=== PATIENT | female | born 1960 | race Caucasian/White ===

== ENCOUNTER → 2018-08-05 16:32 | Outpatient (CLI) | payer BC, SELFPAY ==
[2018-08-05 17:48] LABS: Hematocrit 33.5 % (37-47); Hemoglobin 8.6 g/dl (12.0-15.0)
[2018-08-05 18:02] LABS: Ferritin 5 ng/mL (8-252); Iron 15 ug/dL (50-170)
[2018-08-07 16:07] LABS: Endomysial Antibody IgA Negative (Negative)
[2018-08-08 18:17] LABS: Immunoglobulin A 233 mg/dL (87-352); t-Transglutaminase IgA <2 U/mL (0-3)
== END ==
PROVIDERS: Family Provider Nurse Practitioner Family; PCP Nurse Practitioner Family; Referring Provider Internal Medicine Gastroenterology; Visit Provider Internal Medicine Gastroenterology
DX: D50.9 Iron deficiency anemia, unspecified (principal)
CPT/HCPCS: 36415; 82728; 82784; 83516; 83540; 85014; 85018; 86255

== ENCOUNTER → 2018-08-14 16:29 | Outpatient (CLI) | payer BC, SELFPAY ==
--- NOTE | 2018-08-14 10:05 | EGD_PTH ---
PATIENT: JAKUB LOGAN LOC: [facility] U#:[id number] AGE/SX: 65/F ROOM: RE08/14/[address]: Dr. Asael Overton MD : 1960 BED: DIS: SPEC #: [id number] RECD: 08/14/18 16:02 STATUS: JASMINE HERNANDEZ #: [id number] ELIA: 08/14/18 10:[address]: Asael Overton DEPT: SURGICAL PATHOLOGY RECD BY: Beto Franks ENTERED: 08/17/18 10:18 SP TYPE: EGD BIOPSY OTHR DR: Kristen Jiménez, PHLEBOTOMY [facility] Tissues: Duodenum, NOS Procedures: Surgery Specimen Level IV HEADER OPERATION: EGD with biopsies PRE-OP DIAGNOSIS: Iron deficiency, anemia TISSUE SUBMITTED: Duodenal biopsies, rule out celiac MICROSCOPIC DIAGNOSIS Duodenal biopsies: Mild chronic duodenitis with mildly increased intraepithelial lymphocytes and decreased villous to crypt ratio. CE:thomas 08/18/18 COMMENT Microscopic features of celiac disease are not identified. Clinical correlation is recommended. Case has been reviewed in consultation with Dr. Bazzi who concurs with the above diagnosis. IDC:AM MICROSCOPIC DESCRIPTION Slides are reviewed. GROSS DESCRIPTION Received in fixative is one container labeled with the patient's name and designated duodenal biopsy. The specimen consists of multiple irregular fragments of light bowers soft tissue that in aggregate measure 0.6 x 0.5 x 0.1 cm. The specimen is totally submitted in one cassette. / AM:thomas 08/17/18 TC:3 CPT: 99647
--- OUTSIDE RECORDS SUMMARY | 2018-10-19 07:51 | XMS RPT_ITS | Summary of Care ---
:1960 Author Organization [facility] Address [address] [place] [address] Care Team Providers Name Role Phone Jessy Kristenstan Granado CNP Primary Care Provider Reason for Visit Reason Comments Follow-up Patient is here for follow up of eustachian tube dysfunction Left tube placed on 10/03/2017. Timin months Associated symptoms:patient complains of hearing her pulse in right ear, left ear feels as though it's filling up. She has a cold. Location : left ear Severity: low Encounter Details Date Type Department Care Team Description 07/09/2018 Office Visit [facility] ENT Cody Mattson Dysfunction of both eustachian tubes (Primary Dx); Physicians Frank Rojas DO Bilateral tinnitus; [address] [place] [address] [place] [address] [phone] Allergies No Known Allergiesas of this encounter Medications Prescription Sig. Disp. Refills Start Date End Date Status losartan (COZAAR) 25 MG Take 25 mg by mouth Active tablet daily. metFORMIN (GLUCOPHAGE) Take 500 mg by Active 500 MG tablet mouth 2 (two) times a day with meals (morning and evening meals) . sertraline (ZOLOFT) 50 MG Take 50 mg by mouth Active tablet daily. glimepiride (AMARYL) 2 MG 07/01/2018 Active tablet as of this encounter Active Problems Problem Noted Date Tobacco Abuse 07/09/2018 Dysfunction of both eustachian tubes 10/23/2017 Bilateral tinnitus 09/09/2017 Bilateral hearing loss 09/09/2017 Social History Tobacco Use Types Packs/Day Years Used Date Heavy Tobacco Smoker Cigarettes 0.5 20 Smokeless Tobacco: Never Used Comments: 2nd hand exposure Alcohol Use Drinks/Week oz/Week Comments No Sex Assigned at Date Recorded Not on file as of this encounter Last Filed Vital Signs Vital Sign Reading Time Taken Blood Pressure 150/75 07/09/2018 8:06 AM EST Pulse 85 07/09/2018 8:06 AM EST Temperature 36.8 ??C (98.2 ??F) 07/09/2018 8:06 AM EST Respiratory Rate - - Oxygen Saturation - - Inhaled Oxygen Concentration - - Weight 85.7 kg (189 lb) 07/09/2018 8:06 AM EST Height 152.4 cm (5') 07/09/2018 8:06 AM EST Body Mass Index 36.91 07/09/2018 8:06 AM EST in this encounter Instructions Patient Instructions - Cody Mattson Jr., - 07/09/2018 8:15 AM EST Assessment/Plan: Diagnoses and all orders for this visit: Dysfunction of both eustachian tubes The patient's tube on left are in place and functional. No evidence of drainage or inflammation. Noevidence of granulation tissue formation. I will see them back in 4 months or earlier if needed. Bilateral tinnitus in this encounter Progress Notes Cody Mattson Jr., - 07/09/2018 8:05 AM ESTSubjective Patient ID: Estefania Harper is a 58 y.o. female. Patient is here for follow up of eustachian tube dysfunction Left tube placed on 10/03/2017. Timin months Associated symptoms:patient complains of hearing her pulse in right ear, left ear feels as though it's filling up. She has a cold. Location : left ear Severity: low The following portions of the patient's history were reviewed and updated as appropriate: allergies,current medications, past family history, past medical history, past social history, past surgical history and problem list. Review of Systems Constitutional: Negative for chills and diaphoresis. HENT: Negative for ear discharge and ear pain. Eyes: Negative for discharge and redness. Respiratory: Negative for apnea and cough. Cardiovascular: Negative for chest pain and palpitations. Musculoskeletal: Negative for neck pain and neck stiffness. Skin: Negative for color change and pallor. Allergic/Immunologic: Negative for immunocompromised state. Neurological: Negative for facial asymmetry and numbness. Hematological: Does not bruise/bleed easily. Psychiatric/Behavioral: Negative for agitation and confusion. Objective Physical Exam Constitutional: She appears well-developed and well-nourished. She does not have a sickly appearance. She does not appear ill. HENT: Head: Normocephalic and atraumatic. Right Ear: Tympanic membrane, external ear and ear canal normal. No drainage or swelling. Left Ear: Tympanic membrane, external ear and ear canal normal. No drainage or swelling. Nose: No mucosal edema or sinus tenderness. Mouth/Throat: Uvula is midline, oropharynx is clear and moist and mucous membranes are normal. Normal dentition. No oropharyngeal exudate or posterior oropharyngeal erythema. Tube open in good position left Eyes: Pupils are equal, round, and reactive to light. Conjunctivae, EOM and lids are normal. Left eye exhibits no chemosis and no discharge. Neck: Normal range of motion. Neck supple. No edema and normal range of motion present. No thyroid mass and no thyromegaly present. Pulmonary/Chest: No stridor. Musculoskeletal: Normal range of motion. Assessment/Plan: Diagnoses and all orders for this visit: Dysfunction of both eustachian tubes The patient's tube on left are in place and functional. No evidence of drainage or inflammation. Noevidence of granulation tissue formation. I will see them back in 4 months or earlier if needed. Bilateral tinnitus in this encounter Plan of Treatment Upcoming Encounters Date Type Specialty Care Team Description 11/05/2018 Office Visit Otolaryngology Cody Mattson Jr., DO [address] [place] [address] [phone] Health Maintenance Due Date Last Done Comments COLONOSCOPY 1960 HEPATITIS C SCREENING 1960 SEQUENTIAL INFLUENZA VACCINE (#1) 2018 PAP SMEAR 02/24/2023 02/24/2018, 02/20/2017, 05/30/2016, Additional history exists TETANUS EVERY 10 YR 11/28/2026 11/28/2016 as of this encounter Visit Diagnoses Diagnosis Dysfunction of both eustachian tubes - Primary Bilateral tinnitus Tobacco Abuse Tobacco use disorder
--- OUTSIDE RECORDS SUMMARY | 2018-10-19 07:51 | XMS RPT_ITS | Summary of Care ---
:1960 Author Organization [facility] Address [address] [place] [address] Phone Care Team Providers Name Role Phone Unavailable Primary Care Provider Unavailable Encounter Details Date Type Department Care Team Description 09/09/2017 Hospital Encounter [facility] Leyda Tan [address] [place], [place] [address] Conner Bañuelos [phone] [place] [address] Social History Tobacco Use Types Packs/Day Years Used Date Never Assessed Sex Assigned at Date Recorded Not on file as of this encounter Plan of Treatment Upcoming Encounters Date Type Specialty Care Team Description 10/23/2017 Hospital Encounter Cody Mattson Jr., DO [address] [place] [address] as of this encounter Insurance Payer Benefit Plan / Group Subscriber ID Type Phone Address ANTHKING BERNARD/PREF/HMO/PPO [id number] ANTHEM ANTHEM BLUE/PREF/HMO/PPO [id number] ANTHEM ANTHEM BLUE/PREF/HMO/PPO [id number] as of this encounter
--- OUTSIDE RECORDS SUMMARY | 2018-10-19 07:51 | XMS RPT_ITS | Summary of Care ---
:1960 Author Organization [facility] Address [address] [place] [address] Care Team Providers Name Role Phone Unavailable Primary Care Provider Unavailable Encounter Details Date Type Department Care Team Description 09/30/2017 Hospital Encounter [facility] Cody Mattsonbrisa [address] [facility] [place] [address] [facility] [phone] [place] [address] [phone] Social History Tobacco Use Types Packs/Day Years Used Date Never Assessed Sex Assigned at Date Recorded Not on file as of this encounter Plan of Treatment Upcoming Encounters Date Type Specialty Care Team Description 10/03/2017 Hospital Encounter Cody Mattsonricky Rojas, DO [address] [place] [address] [phone] 10/23/2017 Hospital Encounter Cody Mattsonricky Rojas, DO [address] [place] [address] [phone] as of this encounter Insurance Payer Benefit Plan / Group Subscriber ID Type Phone Address ANTHKING PATEL BLUE/PREF/HMO/PPO xxxxxxxxxxxx ANTHEM ANTHEM BLUE/PREF/HMO/PPO xxxxxxxxxxxx ANTHEM ANTHEM BLUE/PREF/HMO/PPO xxxxxxxxxxxx as of this encounter
--- OUTSIDE RECORDS SUMMARY | 2018-10-19 07:51 | XMS RPT_ITS | Summary of Care ---
:1960 Author Organization [facility] Address [address] [place] [address] Care Team Providers Name Role Phone Kristen Jiménez Vannesa NEWS TECHNICAL DIRECTOR Primary Care Provider Reason for Visit Reason Comments Follow-up Timin months Location:ear Associated symptoms: none Severity: low No complaints, left tube placement September 2017. Encounter Details Date Type Department Care Team Description 02/23/2018 Office Visit [facility] ENT Cody Mattson Dysfunction of both Physicians Frank Rojas, DO eustachian tubes [address] (Primary Dx) [place] [address] [place] [address] [phone] Allergies No Known Allergiesas of this encounter [...] 50 mg by mouth Active tablet daily. as of this encounter Active Problems Problem Noted Date Dysfunction of both eustachian tubes 10/23/2017 Bilateral [...] Vital Sign Reading Time Taken Blood Pressure 143/74 02/23/2018 8:00 AM EDT Pulse 97 02/23/2018 8:00 AM EDT Temperature 36.5 ??C (97.7 ??F) 02/23/2018 8:00 AM EDT Respiratory Rate - - Oxygen Saturation - - Inhaled Oxygen Concentration - - Weight 84.3 kg (185 lb 12.8 oz) 02/23/2018 8:00 AM EDT Height 152.4 cm (5') 02/23/2018 8:00 AM EDT Body Mass Index 36.29 02/23/2018 8:00 AM EDT in this encounter Instructions Patient Instructions - Cody Mattson Jr., - 02/23/2018 8:08 AM EDT Assessment Diagnoses and all orders for this visit: ?? Dysfunction of both eustachian tubes ?? The patient's tube on left is in place and functional. No evidence of drainage or inflammation. Noevidence of granulation tissue formation. I will see them back in 4 months or earlier if needed. ? in this encounter Progress Notes Cody Mattson Jr., - 02/23/2018 8:01 AM EDTSubjective Patient ID: Estefania Harper is a 58 y.o. female. HPI The following portions of the patient's history [...] HENT: Head: Normocephalic and atraumatic. Right Ear: External ear normal. No drainage or swelling. Left Ear: External ear normal. No drainage or swelling. Nose: No mucosal edema or sinus tenderness. Mouth/Throat: Uvula is midline, oropharynx is clear and moist and mucous membranes are normal. Normal dentition. No oropharyngeal exudate or posterior oropharyngeal erythema. Tube open in good position right Tube open in good position left Eyes: Conjunctivae, EOM and lids are normal. Pupils are equal, round, and reactive to light. Left eye exhibits no chemosis and no discharge. Neck: Normal range of motion. Neck supple. No edema and normal range of motion present. No thyroid mass and no thyromegaly present. Pulmonary/Chest: No stridor. Musculoskeletal: Normal range of motion. Assessment/Plan: Diagnoses and all orders for this visit: Dysfunction of both eustachian tubes The patient's tube on left is in place and functional. No evidence of drainage or inflammation. No evidence of granulation tissue formation. I will see them back in 4 months or earlier if needed. in this encounter Plan of Treatment Upcoming Encounters Date Type Specialty Care Team Description 02/24/2018 Office Visit Obstetrics and Gynecology Ashlee Castro, NEWS TECHNICAL DIRECTOR [address] [facility] [address] [address] [phone] 06/29/2018 Office Visit Otolaryngology Cody Mattson Jr., DO [address] [place] [phone] Health Maintenance Due Date Last Done Comments COLONOSCOPY 1960 HEPATITIS C SCREENING 1960 SEQUENTIAL INFLUENZA VACCINE (#1) 2018 PAP SMEAR 02/21/2020 02/20/2017, 05/30/2016, 05/17/2015 TETANUS EVERY 10 YR 11/28/2026 11/28/2016 as of this encounter Visit Diagnoses Diagnosis Dysfunction of both eustachian tubes - Primary
--- OUTSIDE RECORDS SUMMARY | 2018-10-19 07:51 | XMS RPT_ITS | Summary of Care ---
:1960 Author Organization [facility] Address [address] [place] [address] Care Team Providers Name Role Phone Kristen Jiménez Vannesa KAMARA Primary Care Provider Reason for Visit Reason Comments Eustachian Tube Dysfunction Patient is here for 3 week post op. Left tube placed on 10/03/2017. Patient states her left ear is doing good. Complains of b/l itching in ears, off/on. Encounter Details Date Type Department Care Team Description 10/23/2017 Office Visit [facility] ENT Cody Mattson Dysfunction of both Physicians Frank Rojas, DO eustachian tubes [address] (Primary Dx) [place] [address] [place] [address] [phone] Allergies No Known Allergiesas of this encounter [...] Vital Sign Reading Time Taken Blood Pressure 147/72 10/23/2017 3:56 PM EDT Pulse 115 10/23/2017 3:56 PM EDT Temperature 36.6 ??C (97.9 ??F) 10/23/2017 3:56 PM EDT Respiratory Rate - - Oxygen Saturation - - Inhaled Oxygen Concentration - - Weight 87.7 kg (193 lb 4.8 oz) 10/23/2017 3:56 PM EDT Height 152.4 cm (5') 10/23/2017 3:56 PM EDT Body Mass Index 37.75 10/23/2017 3:56 PM EDT in this encounter Progress Notes Cody Mattson Jr., DO - 10/23/2017 3:52 PM EDTSubjective Patient ID: Estefania Harper is a 57 y.o. female. The patient presents status post prior tube placement for scheduled pe tube check. The parent states they are doing well. Denies otorrhea or otalgia. No recent evidence of hearing loss. Patient is here for 3 week post op. Left tube placed on 10/03/2017. Patient states her left ear is doing good. Complains of b/l itching in ears, off/on. The following portions of the patient's history were reviewed and updated as appropriate: allergies,current medications, past family history, past medical history, past social history, past surgical history and problem list. Review of Systems Constitutional: Negative for chills and diaphoresis. HENT: Negative for ear discharge, ear pain, sinus pain and sinus pressure. Eyes: Negative for discharge and redness. Respiratory: Negative for apnea and cough. Cardiovascular: Negative for chest pain and palpitations. Musculoskeletal: Negative for neck pain and neck stiffness. Skin: Negative for color change and pallor. Neurological: Negative for facial asymmetry and numbness. Psychiatric/Behavioral: Negative for agitation and confusion. Objective Physical Exam Constitutional: She is oriented to person, place, and time. She appears well- developed and well-nourished. HENT: Head: Normocephalic and atraumatic. Right Ear: Tympanic membrane, external ear and ear canal normal. Left Ear: Tympanic membrane, external ear and ear canal normal. Nose: Nose normal. pe tube is in place and functional Eyes: Conjunctivae, EOM and lids are normal. Pupils are equal, round, and reactive to light. Left eye exhibits no chemosis. Neck: Normal range of motion. Neck supple. No tracheal deviation present. No thyromegaly present. Cardiovascular: Normal rate, regular rhythm and normal heart sounds. Pulmonary/Chest: Effort normal and breath sounds normal. No stridor. Lymphadenopathy: Head (right side): No submental, no submandibular, no preauricular, no posterior auricular and no occipital adenopathy present. Head (left side): No submental, no submandibular, no preauricular, no posterior auricular and no occipital adenopathy present. She has no cervical adenopathy. Right cervical: No superficial cervical adenopathy present. Left cervical: No superficial cervical and no deep cervical adenopathy present. Neurological: She is alert and oriented to person, place, and time. Coordination and gait normal. Skin: Skin is warm and dry. Psychiatric: Her mood appears not anxious. Her affect is not angry. Her speech is not delayed and not slurred. She is not agitated and not aggressive. Assessment/Plan: Diagnoses and all orders for this visit: Dysfunction of both eustachian tubes The patient's tube on left is in place and functional. No evidence of drainage or inflammation. No evidence of granulation tissue formation. I will see them back in 4 months or earlier if needed. in this encounter Plan of Treatment Upcoming Encounters Date Type Specialty Care Team Description 02/23/2018 Office Visit Otolaryngology Cody Mattson Jr., DO [address] [place] [address] [phone] Health Maintenance Due Date Last Done Comments COLONOSCOPY 1960 HEPATITIS C SCREENING 1960 TETANUS EVERY 10 YR 1960 SEQUENTIAL INFLUENZA VACCINE (#1) 2017 PAP SMEAR 05/30/2019 05/30/2016, 05/17/2015 as of this encounter Visit Diagnoses Diagnosis Dysfunction of both eustachian tubes - Primary
--- OUTSIDE RECORDS SUMMARY | 2018-10-19 07:51 | XMS RPT_ITS | Summary of Care ---
:1960 Author Organization [facility] Address [address] [place] [phone] Phone Care Team Providers Name Role Phone Unavailable Primary Care Provider Unavailable Encounter Details Date Type Department Care Team Description 08/08/2017 Hospital Encounter [facility] Ashlee Castro, BRAZER CRAWLER TORCH [address] [facility] [address] [facility] [address] [phone] [place] [address] [phone] Social History Tobacco Use Types Packs/Day Years Used Date Never Assessed Sex Assigned at Date Recorded Not on file as of this encounter Plan of Treatment Upcoming Encounters Date Type Specialty Care Team Description 09/09/2017 Hospital Encounter Cody Mattson Jr., DO [address] [place] [address] [phone] as of this encounter Insurance Payer Benefit Plan / Group Subscriber ID Type Phone Address AMANDA BERNARD/PREF/HMO/PPO [id number] ANTHEM AMANDA BLUE/PREF/HMO/PPO [id number] ANTHKING PERRYEM BLUE/PREF/HMO/PPO [id number] as of this encounter
--- OUTSIDE RECORDS SUMMARY | 2018-10-19 07:51 | XMS RPT_ITS ---
:1960 Author Organization [place] Support Name Relationship Address Phone SANDI LOGAN Unavailable [address] + [place] [address] [facility] MAINTENANCE COORDINATOR Unavailable [address] + [place] [address] CHANTALE LANIFER Unavailable Unavailable + DOREEN SANDI Unavailable Unavailable + [facility] MAINTENANCE COORDINATOR Unavailable [address] + [place] [address] DOREEN SANDI Unavailable [address] + [place] [address] STOBER MARY JANE Unavailable Unavailable + ABHINAV MARY JANE Unavailable Unavailable + ABHINAV MARY JANE Unavailable Unavailable + DOREEN SANDI Unavailable [address] + [place] [address] DOREEN SANDI Unavailable [address] [place] [address] NOT GIVEN Unavailable [address] + [place] [address] STOPILLO MARY JANE Unavailable [address] + [place] [address] DOREEN SANDI Unavailable [address] + [place] [address] DOREEN SANDI Unavailable [address] [place] [address] NOT GIVEN Unavailable [address] + [place] [address] ABHINAV MARY JANE Unavailable [address] + [place] [address] SANDI OLGAN Unavailable [address] [place] [address] NOT GIVEN Unavailable [address] + [place] [address] STOBER, MARY JANE Unavailable [address] + [place] [address] SANDI LOGAN Unavailable [address] [place] [address] NOT GIVEN Unavailable [address] + [place] [address] STOBER, MARY JANE Unavailable [address] + [place] [address] SANDI LOGAN Unavailable [address] [place] [address] NOT GIVEN Unavailable [address] + [place] [address] STOBER, MARY JANE Unavailable [address] + [place] [address] Care Team Providers Name Role Phone Asael [place] Attending Unavailable JabourAsael Referring Unavailable [place], Louis FLIGHT TEACHER-C Primary Care Unavailable Asael [place] Attending Unavailable Jabour Vincent Referring Unavailable [place], Louis FLIGHT TEACHER-C Primary Care Unavailable Dr. Cody Mattson Admitting Unavailable Dr. Cody Mattson Attending Unavailable Dr. Cody Mattson Admitting Unavailable Srinivasan, Dr. Ross Attending Unavailable Leyda Tan Admitting Unavailable Leyda Tan Attending Unavailable Dr. Cody Mattson Admitting Unavailable Dr. Cody Mattson Attending Unavailable Dr. Cody Mattson Admitting Unavailable Dr. Cody Mattson Attending Unavailable [place], Louis December Admitting Unavailable [place], Louis December Attending Unavailable [place], Louis December Primary Care Unavailable [place], Louis December Admitting Unavailable [place], Louis December Attending Unavailable [place], Louis December Primary Care Unavailable [place], Louis December Admitting Unavailable [place], Louis December Attending Unavailable [place], Louis December Primary Care Unavailable [place], Louis December Attending Unavailable [place], Louis December Primary Care Unavailable [place], Louis December Admitting Unavailable Gahlawat, Tarsha Attending Unavailable [place], Louis December Primary Care Unavailable Iván Pinzon Attending Unavailable [place], Louis December Primary Care Unavailable Gahlawat, Tarsha Admitting Unavailable Gahlawat, Tarsha Attending Unavailable [place], Louis December Primary Care Unavailable [place], Louis December Attending Unavailable [place], Louis December Primary Care Unavailable [place], Louis December Admitting Unavailable [place], Louis December Admitting Unavailable [place], Louis December Attending Unavailable [place], Louis December Primary Care Unavailable [place], Louis December Admitting Unavailable [place], Louis December Attending Unavailable [place], Louis December Primary Care Unavailable [place], Louis December Admitting Unavailable [place], Louis December Attending Unavailable [place], Louis December Primary Care Unavailable [place], Louis December Admitting Unavailable [place], Louis December Attending Unavailable [place], Louis December Primary Care Unavailable [place], Louis December Admitting Unavailable [place], Louis December Attending Unavailable [place], Louis December Primary Care Unavailable [place], Louis December Admitting Unavailable [place], Louis December Attending Unavailable [place], Louis December Primary Care Unavailable CODY MATTSON EARORACIO Attending Unavailable HARPSTER, LOUIS DECEMBER Primary Care Unavailable CODY MATTSON EARNEST Attending Unavailable HARPSTER, LOUIS DECEMBER Primary Care Unavailable CODY MATTSON EARCLAUDET Attending Unavailable HARPSTER, LOUIS DECEMBER Primary Care Unavailable PROBLEMS PROBLEMS DATE TYPE CONDITION / CODE ATTENDING STATUS SOURCE 07/09/2018 Admitting Tobacco use / CODY MATTSON Active [facility] diagnosis Z72.0(ICD-10) EARNEST Three Repository 10/23/2017 Admitting Other specified CODY MATTSON Active [facility] diagnosis disorders of EARNEST Three Repository eustachian tube, bilateral / H69.83(ICD-10) 10/22/2017 Admitting Tinnitus, CODY MATTSON Active [facility] diagnosis bilateral / EARNEST Three Repository H93.13(ICD-10) PROCEDURES PROCEDURES No Procedure Records FoundRESULTS RESULTS EGD (PICK SITE) Observed: 08/14/2018 Status: F Source: [place] 10:05 AM [facility] REPOSITORY Patient: ESTEFANIA LOGAN : 1960 (58/F) Acct Num: [id number] Phys: Asael Overton Unit Num: [id number] Loc: LABSPEC Specimen: [id number] Received: 08/14/18 - 1601 Spec Type: EGD BIOPSY TISSUES 1 TISSUES: Duodenum, NOS COMMENT Microscopic features of celiac disease are not identified. Clinical correlation is recommended. Case has been reviewed in consultation with Dr. Bazzi who concurs with the above diagnosis. IDC:AM GROSS DESCRIPTION Received in fixative is one container labeled with the patient's name and designated duodenal biopsy. The specimen consists of multiple irregular fragments of light bowers soft tissue that in aggregate measure 0.6 x 0.5 x 0.1 cm. The specimen is totally submitted in one cassette. / AM:thomas 08/17/18 TC:3 CPT: 17931 HEADER OPERATION: EGD with biopsies PRE-OP DIAGNOSIS: Iron deficiency, anemia TISSUE SUBMITTED: Duodenal biopsies, rule out celiac MICROSCOPIC DESCRIPTION Slides are reviewed. MICROSCOPIC DIAGNOSIS Duodenal biopsies: Mild chronic duodenitis with mildly increased intraepithelial lymphocytes and decreased villous to crypt ratio. CE:thomas 08/18/18 Signed Silvio Puentes MD <signature on file> Performed By: #### PEGD #### [facility] [address] [place], [address] BMP Collected: 08/07/2018 Status: F Source: [place] 7:53 AM [facility] REPOSITORY TYPE CODE TESTS RESULT OUT OF RANGE REFERENCE UNITS LAB 36086014(L 70-99 mg/dL OINC) High Glucose Lvl 132 LAB 08068612(L 6-23 mg/dL OINC) BUN Normal 11 LAB 1655017(LO 0.5-1.1 mg/dL INC) Normal Creatinine 0.6 LAB 23630849(L 5.4-30.0 ratio OINC) Normal BUN/Creat Ratio 18.3 LAB 21146924(L 8.6-10.3 mg/dL OINC) Calcium Normal Lvl 9.4 LAB 29579906(L 136-145 mEq/L OINC) Sodium Normal Lvl 138 LAB 89237182(L 3.5-5.3 mEq/L OINC) Normal Potassium Lvl 4.3 LAB 59507779(L 98-107 mEq/L OINC) High Chloride 109 LAB 32447499(L 21.0-32.0 mEq/L OINC) CO2 Normal 24.0 LAB 56139365(L 10-20 mEq/L OINC) Low AGAP 9 Performed By: #### [id number] #### REGGIE [employer] [address] [place] [address] EGFR Collected: 08/07/2018 Status: F Source: [place] 7:53 AM [facility] REPOSITORY Order Comment: Order added by Discern Expert. TYPE CODE TESTS RESULT OUT OF RANGE REFERENCE UNITS LAB 66490523(LO mL/min/1.73 INC) m2 Normal eGFR >60 LAB 46060557(LO mL/min/1.73 INC) m2 Normal eGFR AA >60 Performed By: #### [id number] #### REGGIE [employer] [place] [address] HEP FUNC PANEL Collected: 08/07/2018 Status: F Source: [place] 7:53 AM [facility] REPOSITORY TYPE CODE TESTS RESULT OUT OF RANGE REFERENCE UNITS LAB 56521889(L 7-45 Int._Unit/L OINC) High ALT 51 LAB 84046345(L 9-39 Int._Unit/L OINC) High AST 45 LAB 42325022(L 3.4-5.0 gm/dL OINC) Normal Albumin Lvl 3.9 LAB 56459440(L 2.0-4.0 G/DL OINC) Normal Globulin 3.0 LAB 11137408(L 1.1-1.9 ratio OINC) Normal A/G Ratio 1.6 LAB 75724591(L 33-110 Int._Unit/L OINC) High Alk Phos 115 LAB 61302464(L 0.00-0.30 mg/dL OINC) Normal Bili Direct 0.09 LAB 68374563(L mg/dL OINC) Normal Bili Indirect 0.18 Result Comment: No established ranges available for the indirect bilirubin LAB 40182883(LOINC) 0.00-1.20 mg/dL Normal Bili Total 0.27 LAB 05617486(LOINC) 6.4-8.2 gm/dL Normal Total Protein 6.4 Performed By: #### [id number] #### REGGIE [employer] [place] [address] HGBA1C Collected: 08/07/2018 Status: F Source: [place] 7:53 AM [facility] REPOSITORY TYPE CODE TESTS RESULT OUT OF RANGE REFERENCE UNITS LAB 236826584( 4.0-6.3 % LOINC) Normal Hemoglobin A1c 5.9 Performed By: #### [id number] #### REGGIE Chemistry Manual Subsection [employer] [place] [address] IRON Collected: 08/05/2018 Status: F Source: [place] 4:41 PM [facility] REPOSITORY TYPE CODE TESTS RESULT OUT OF RANGE REFERENCE UNITS LAB L503.6150 50-170 ug/dL Low IRON 15 Performed By: #### L503.6150, L503.6550 #### [facility] [address] [place], [place], [id number] FERRITIN Collected: 08/05/2018 Status: F Source: [place] 4:41 PM [facility] REPOSITORY TYPE CODE TESTS RESULT OUT OF REFERENCE UNITS RANGE LAB L503.6550 8-252 ng/mL Low FERRITIN 5 Performed By: #### L503.6150, L503.6550 #### [facility] [address] [place], [address] HH, HEMOGLOBIN AND Collected: 08/05/2018 Status: F Source: [place] HEMATOCRIT 4:41 PM [facility] REPOSITORY TYPE CODE TESTS RESULT OUT OF RANGE REFERENCE UNITS LAB L100.1300 12.0-15.0 g/dl Low HGB 8.6 LAB L100.1400 37-47 % Low HCT 33.5 Performed By: #### L100.0600 #### [facility] [address] [place], [address] CELIAC DISEASE Collected: 08/05/2018 Status: F Source: [place] PROFILE 4:41 PM [facility] REPOSITORY TYPE CODE TESTS RESULT OUT OF RANGE REFERENCE UNITS LAB L3200.1400 87-352 mg/dL Normal IMMUNO A 233 Result Comment: Performed at: [facility] [id number] Industrial Waste Inspector: Asael Nielsen PhD, Phone: [phone] LAB L3368.6472 0-3 U/mL Normal tTG IGA <2 Result Comment: Negative 0 - 3 Weak Positive 4 - 10 Positive >10 Tissue Transglutaminase (tTG) has been identified as the endomysial antigen. Studies have demonstr- ated that endomysial IgA antibodies have over 99% specificity for gluten sensitive enteropathy. LAB L3410.0755 Negative Normal ENDOMYSIAL IGA Negative Performed By: #### L3410.2400 #### [facility] (refer to report for specific site) refer to report for address and phone number RETIC COUNT Collected: 07/03/2018 Status: F Source: [place] 8:25 AM [facility] REPOSITORY TYPE CODE TESTS RESULT OUT OF REFERENCE UNITS RANGE LAB 16864732(L 0.5-1.5 % OINC) Reticulocyte High 2.1 Performed By: #### [id number] #### REGGIE Collazo [address] [place] [address] PT Collected: 07/03/2018 Status: F Source: [place] 8:25 AM [facility] REPOSITORY TYPE CODE TESTS RESULT OUT OF RANGE REFERENCE UNITS LAB 22227624(LO 1.0-1.2 INC) Normal INR 1.0 Result Comment: INR Recommended Therapeuptic Ranges: Prophylaxis/treatment of DVT and PE?2.0-3.0 Prevention of systemic embolism?.2.0-3.0 Mechanical prosthetic values?2.5-3.5 CRITICAL VALUES?.>4.0 LAB 15430307(LOINC) 11.6-14.6 second(s) Normal 13.0 PT Performed By: #### [id number] #### REGGIE Hematology Automated Subsection [employer] [place] [id number] CBC W/ AUTO DIFF Collected: 07/03/2018 Status: F Source: [place] 8:25 AM [facility] REPOSITORY TYPE CODE TESTS RESULT OUT OF RANGE REFERENCE UNITS LAB 50805285(L 3.6-11.0 E3/mcL OINC) Normal WBC 5.5 LAB 31851038(L 3.90-5.40 E6/mcL OINC) Normal RBC 5.19 LAB 03049613(L 12.0-16.0 G/DL OINC) Low Hgb 8.0 LAB 53643228(L 36.0-48.0 % OINC) Low Hct 29.6 LAB 23190824(L 11.5-14.5 % OINC) High RDW 21.5 LAB 73008700(L 27.0-31.0 pg OINC) Low MCH 15.4 LAB 96815813(L 33.0-37.0 G/DL OINC) Low MCHC 26.9 LAB 26508381(L 78.0-100.0 fL OINC) Low MCV 57.1 LAB 64556983(L 7.4-11.0 fL OINC) Normal MPV 8.8 LAB 01567678(L 130-400 E3/mcL OINC) Normal Platelet 320 Performed By: #### [id number] #### REGGIE [employer] [address] [place] [address] MORPH Collected: 07/03/2018 Status: F Source: [place] 8:25 AM [facility] REPOSITORY Order Comment: Order Added by Discern Expert. TYPE CODE TESTS RESULT OUT OF REFERENCE UNITS RANGE LAB 65936126( LOINC) RBC Morph SEE Normal MORPHOLOGY LAB 58499245( LOINC) Hypochromasia 3+ Normal LAB 33125293( LOINC) Target Cell 1+ Normal LAB 71108257( LOINC) Teardrop Cell 1+ Normal LAB 44488384( LOINC) Schistocytes 1+ Normal LAB 10956900( LOINC) Microcyte 3+ Normal LAB 56664875( LOINC) Anisocytosis 3+ Normal LAB 87486898( LOINC) Ovalocytes 2+ Normal Performed By: #### [id number] #### [place] [address] ZZPLT MORPH Collected: 07/03/2018 Status: F Source: [place] 8:25 AM [facility] REPOSITORY TYPE CODE TESTS RESULT OUT OF RANGE REFERENCE UNITS LAB 64191655(L OINC) Normal Platelet NORMAL Estimate LAB 72958491(L OINC) Normal Platelet Morph ENLARGED Performed By: #### [id number] #### [place] [address] AUTO DIFF Collected: 07/03/2018 Status: F Source: [place] 8:25 AM [facility] REPOSITORY Order Comment: Order Added by Discern Expert. TYPE CODE TESTS RESULT OUT OF RANGE REFERENCE UNITS LAB 11351406(L 37.0-75.0 % OINC) Normal Neutro Auto 59.7 LAB 60124847(L 20.0-55.0 % OINC) Normal Lymph Auto 31.2 LAB 19893995(L 0.0-10.0 % OINC) Normal [place] Auto 7.3 LAB 48285979(L 0.0-11.0 % OINC) Normal Eos Auto 1.3 LAB 23303854(L 0.0-2.0 % OINC) Normal Basophil Auto 0.5 LAB 98255010(L 1.4-6.5 E3/mcL OINC) Normal Neutro 3.3 Absolute LAB 41944685(L 1.2-3.4 E3/mcL OINC) Normal Lymph Absolute 1.7 LAB 13382524(L 0.0-0.7 E3/mcL OINC) Normal [place] Absolute 0.4 LAB 16088878(L 0.0-0.7 E3/mcL OINC) Normal Eos Absolute 0.1 LAB 78758862(L 0.0-0.2 E3/mcL OINC) Normal Basophil 0.0 Absolute Performed By: #### [id number] #### [place] [address] HEP FUNC PANEL Collected: 07/03/2018 Status: F Source: [place] 8:25 AM [facility] REPOSITORY TYPE CODE TESTS RESULT OUT OF RANGE REFERENCE UNITS LAB 25943717(L 7-45 Int._Unit/L OINC) High ALT 66 LAB 63362666(L 9-39 Int._Unit/L OINC) High AST 64 LAB 91544082(L 3.4-5.0 gm/dL OINC) Normal Albumin Lvl 4.3 LAB 96365154(L 2.0-4.0 G/DL OINC) Normal Globulin 2.0 LAB 36144162(L 1.1-1.9 ratio OINC) Normal A/G Ratio 1.8 LAB 14587062(L 33-110 Int._Unit/L OINC) High Alk Phos 123 LAB 83290210(L 0.00-0.30 mg/dL OINC) Normal Bili Direct 0.09 LAB 93316735(L mg/dL OINC) Normal Bili Indirect 0.28 Result Comment: No established ranges available for the indirect bilirubin LAB 78768884(LOINC) 0.00-1.20 mg/dL Normal Bili Total 0.37 LAB 43214211(LOINC) 6.4-8.2 gm/dL Normal Total Protein 6.7 Performed By: #### [id number] #### REGGIE [employer] [address] [place] [address] IRON TESTS Collected: 07/03/2018 Status: F Source: [place] 8:25 AM [facility] REPOSITORY TYPE CODE TESTS RESULT OUT OF RANGE REFERENCE UNITS LAB 07459929(L 35-150 microgram/ OINC) Low dL Iron 12 LAB 20399794(L 200-360 mg/dL OINC) High Transferrin 488 LAB 60639219(L 11-46 OINC) Low Iron Sat 2 LAB 95520492(L >=250 microgram/ OINC) dL TIBC Normal 683 Performed By: #### [id number] #### REGGIE [employer] [address] [place] [address] FERRITIN Collected: 07/03/2018 Status: F Source: [place] 8:25 AM [facility] REPOSITORY TYPE CODE TESTS RESULT OUT OF REFERENCE UNITS RANGE LAB 34747181(LO 8.0-150.0 ng/mL INC) Low Ferritin Lvl 4.0 Performed By: #### [id number] #### REGGIE [employer] [address] [place] [address] VIT B12 Collected: 07/03/2018 Status: F Source: [place] 8:25 AM [facility] REPOSITORY TYPE CODE TESTS RESULT OUT OF RANGE REFERENCE UNITS LAB 02557354(LO 180-914 pg/mL INC) Normal Vitamin B12 364 Lvl Performed By: #### [id number] #### REGGIE [employer] [address] [place] [address] LIPID PROFILE Collected: 06/03/2018 Status: F Source: [place] 8:37 AM [facility] REPOSITORY TYPE CODE TESTS RESULT OUT OF RANGE REFERENCE UNITS LAB 96056932(LO 120-200 mg/dL INC) Low Chol 106 Result Comment: TOTAL CHOLEESTEROL: <200 NORMAL 200 - 239 BORDERLINE HIGH >240 HIGH LAB 63349884(LOINC) mg/dL Normal HDL 35 LAB 21825987(LOINC) 0-130 mg/dL Normal LDL 60 Result Comment: <100 OPTIMAL 100-129 NEAR / ABOVE OPTIMAL 130-159 BORDERLINE HIGH 160-189 HIGH >190 VERY HIGH CALC LDL NOT VALID WHEN TRIGLYCERIDE IS >400 MG/DL LAB 32291891(LOINC) 0-150 mg/dL Normal Trig 55 Result Comment: <150 NORMAL 150-199 BORDERLINE HIGH 200-499 HIGH >500 VERY HIGH LAB 05775979(LOINC) Normal VLDL 11 Performed By: #### [id number] #### REGGIE [employer] [address] [place], [place] [address] CMP Collected: 05/22/2018 Status: F Source: [place] 9:57 AM [facility] REPOSITORY TYPE CODE TESTS RESULT OUT OF RANGE REFERENCE UNITS LAB 36387123(L 10-20 mEq/L OINC) AGAP Normal 10 LAB 41463593(L 70-99 mg/dL OINC) High Glucose Lvl 116 LAB 92421789(L 6-23 mg/dL OINC) BUN Normal 10 LAB 4430884(LO 0.6-1.3 mg/dL INC) Low Creatinine 0.5 LAB 55900638(L 8.6-10.3 mg/dL OINC) Calcium Normal Lvl 9.2 LAB 89369409(L 136-145 mEq/L OINC) Sodium Normal Lvl 139 LAB 98653982(L 3.5-5.3 mEq/L OINC) Normal Potassium Lvl 3.9 LAB 55881629(L 98-107 mEq/L OINC) Chloride Normal 107 LAB 96568537(L 21.0-32.0 mEq/L OINC) CO2 Normal 26.0 LAB 44804971(L 33-110 Int._Unit/ OINC) High L Alk Phos 134 LAB 01449293(L 0.0-1.2 mg/dL OINC) Bili Normal Total 0.4 LAB 87073812(L 3.4-5.0 G/DL OINC) Albumin Normal Lvl 4.0 LAB 03342922(L 6.4-8.2 gm/dL OINC) Total Normal Protein 6.6 LAB 08694503(L 7-45 Int._Unit/ OINC) High L ALT 95 LAB 50418403(L 9-39 Int._Unit/ OINC) High L AST 97 LAB 03632590(L 5.4-30.0 ratio OINC) Normal BUN/Creat Ratio 20.0 LAB 86980412(L 2.0-4.0 G/DL OINC) Globulin Normal 3.0 LAB 62739583(L 1.1-1.9 ratio OINC) A/G Normal Ratio 1.5 Performed By: #### [id number] #### REGGIE [employer] [address] [place] [address] EGFR Collected: 05/22/2018 Status: F Source: [place] 9:57 AM [facility] REPOSITORY Order Comment: Order added by Discern Expert. TYPE CODE TESTS RESULT OUT OF RANGE REFERENCE UNITS LAB 30374386(LO mL/min/1.73 INC) m2 Normal eGFR >60 LAB 87109955(LO mL/min/1.73 INC) m2 Normal eGFR AA >60 Performed By: #### [id number] #### REGGIE [employer] [address] [place] [address] HGBA1C Collected: 05/22/2018 Status: F Source: [place] 9:57 AM [facility] REPOSITORY TYPE CODE TESTS RESULT OUT OF REFERENCE UNITS RANGE LAB 974588085( 4.0-6.3 % LOINC) High Hemoglobin A1c 7.2 Performed By: #### [id number] #### REGGIE Chemistry Manual Subsection [address] [place] [address] LIPID PROFILE Collected: 11/25/2017 Status: F Source: [place] 7:58 AM [facility] REPOSITORY TYPE CODE TESTS RESULT OUT OF RANGE REFERENCE UNITS LAB 96778191(LO 50-200 mg/dL INC) Normal Chol 114 Result Comment: TOTAL CHOLEESTEROL: <200 NORMAL 200 - 239 BORDERLINE HIGH >240 HIGH LAB 11111907(LOINC) >=41 mg/dL Low HDL 33 LAB 22257702(LOINC) 0-130 mg/dL Normal LDL 69 Result Comment: <100 OPTIMAL 100-129 NEAR / ABOVE OPTIMAL 130-159 BORDERLINE HIGH 160-189 HIGH >190 VERY HIGH CALC LDL NOT VALID WHEN TRIGLYCERIDE IS >400 MG/DL LAB 96604367(LOINC) 35-150 mg/dL Normal Trig 58 Result Comment: <150 NORMAL 150-199 BORDERLINE HIGH 200-499 HIGH >500 VERY HIGH LAB 82617165(LOINC) Normal VLDL 12 Performed By: #### [id number] #### REGGIE [employer] [place] [address] HGBA1C Collected: 11/25/2017 Status: F Source: [place] 7:58 AM [facility] REPOSITORY TYPE CODE TESTS RESULT OUT OF RANGE REFERENCE UNITS LAB 180513433( 4.0-6.3 % LOINC) Normal Hemoglobin A1c 6.3 Performed By: #### [id number] #### REGGIE Chemistry Manual Subsection [employer] [place] [address] HEP BS AB Collected: 11/25/2017 Status: F Source: [place] 7:58 AM [facility] REPOSITORY TYPE CODE TESTS RESULT OUT OF RANGE REFERENCE UNITS LAB 20413172(LO INC) Normal Hep Non Reactive Bs Ab Result Comment: Non Reactive: Inconsistent with immunity, less than 10 mIU/mL Reactive: Consistent with immunity, greater than 9.9 mIU/mL Performed At: [facility] [id number] Morales Vyas PhD Ph:[phone] Performed By: #### [id number] #### REGGIE Send Outs Subsection [employer] [place] [address] HEP C AB Collected: 11/25/2017 Status: F Source: [place] 7:58 AM [facility] REPOSITORY TYPE CODE TESTS RESULT OUT OF RANGE REFERENCE UNITS LAB 70238098(LO 0.0-0.9 s/co ratio INC) Normal Hep C Ab <0.1 Result Comment: Negative: < 0.8 Indeterminate: 0.8 - 0.9 Positive: > 0.9 The CDC recommends that a positive HCV antibody result be followed up with a HCV Nucleic Acid Amplification test (927864). Performed At: [place] [id number] [place], [place] [id number] Morales Vyas PhD Ph:[phone] Performed By: #### [id number] #### REGGIE Send Outs Subsection [employer] [place] [address] HEP BS AG Collected: 11/25/2017 Status: F Source: [place] 7:58 AM [facility] REPOSITORY TYPE CODE TESTS RESULT OUT OF RANGE REFERENCE UNITS LAB 99677882(LO Negative INC) Normal Hep Negative Bs Ag Result Comment: Performed At: [place] [id number] [place], [place] [id number] Morales Vyas PhD Ph:[phone] Performed By: #### [id number] #### REGGIE Send Outs Subsection [address] [place] [address] HEP A IGM Collected: 11/25/2017 Status: F Source: [place] 7:58 AM [facility] REPOSITORY TYPE CODE TESTS RESULT OUT OF RANGE REFERENCE UNITS LAB 54880256(LO Negative INC) Normal Hep A Negative IgM Result Comment: Performed At: [place] [id number] [place], [place] [id number] Morales Vyas PhD Ph:[phone] Performed By: #### [id number] #### REGGIE Send Outs Subsection [address] [place] [address] OPERATION-PROCEDURE Observed: 10/03/2017 Status: F Source: [facility] 7:51 AM [facility] [place] [address] NAME ESTEFANIA LOGAN [facility] [id number] 1960 DATE 10/03/2017 OPERATIVE REPORT / PROCEDURE NOTE SURGEON CODY MATTSON, STATISTICS INTERN None. PREOPERATIVE DIAGNOSIS Eustachian tube dysfunction. POSTOPERATIVE DIAGNOSIS Eustachian tube dysfunction. PROCEDURE Left myringotomy with pressure equalization tube. ANESTHESIA LMA general. ASA 1. COUNTS Correct. COMPLICATIONS None. ESTIMATED BLOOD LOSS Zero. DISPOSITION The patient tolerated the procedure well and is stable. FINDINGS Retracted left tympanic membrane with serous effusion. CLINICAL NOTE Estefania is a pleasant 57-year-old female presenting to my office with a history of decreased hearing on the patient's left side. Physical examination in the office as well as testing is consistent with eustachian tube dysfunction with effusion. Because of these findings and refractory nature to maximal medical therapy, we felt she would benefit greatly from having a pressure equalization tube placed. The risks, benefits, complications, and alternatives to this procedure were discussed with the patient in detail. She appeared to understand this completely and wished to proceed with the operation. DESCRIPTION OF PROCEDURE Estefania was brought to the operative suite at [place] [address]. Time-out was performed and confirmed. She was placed in the supine position and administered mask and IV anesthesia. An LMA was then placed. The patient was sterilely prepped and draped in the usual fashion. Microscope was brought in on the patient's left side and the patient's head was rotated 45 degrees to the right. A #3 speculum was inserted in the external auditory canal. The tympanic membrane could clearly be visualized, and a radial incision was made in the anterior-inferior quadrant of the tympanic membrane with a myringotomy knife. A copious amount of clear serous effusion was encountered in the middle ear space. This was removed using suction. Once all this material had been removed from the middle ear space, a 1.02 Paparella tube was placed in the incision site. Ciprofloxacin drops and sterile cotton were placed in the external auditory canal. All instrumentation was removed from the patient's field. Care of the patient was returned to Anesthesia. She was awoken, LMA removed, and transferred to postanesthesia care unit in stable condition, having tolerated the procedure well. Her family was given written instructions for followup as well as followup appointment date and time card and postprocedure instructions. DO Karly KENDALL 10/03/2017 07:51 [id number] T 10/03/2017 08:00 DEW/MODL cc: ASAD Corcoran DO Electronically Signed By Cody Mattson D.O. on 13 Oct 2017 12:43:18 GMT GLUCOSE, POC Collected: 10/03/2017 Status: F Source: [facility] [place] 7:50 AM [facility] REPOSITORY TYPE CODE TESTS RESULT OUT OF RANGE REFERENCE UNITS LAB GLUX 70-105 mg/dL High Glucose, 120 POC Performed By: #### GLUX #### Unless otherwise noted, all testing performed by [address] [address] CLIA: [id number] Press Writer: Shemar Ashby M.D. GLUCOSE, POC Collected: 10/03/2017 Status: F Source: [facility] [place] 6:32 AM [facility] REPOSITORY TYPE CODE TESTS RESULT OUT OF RANGE REFERENCE UNITS LAB GLUX 70-105 mg/dL High Glucose, 139 POC Performed By: #### GLUX #### Unless otherwise noted, all testing performed by [address] [address] CLIA: [id number] Press Writer: Shemar Ashby M.D. MRI ABDOMEN W/ + W/O Observed: 09/03/2017 Status: F Source: [facility] 8:14 AM [facility] REPOSITORY Exam Date/Time: 09/03/2017 09:41 EST Reason for Exam: HEPATOMEGALY NON ALCOHOLIC HEPATOSTEATOSIS ELEVATED LIVER ENZYMES LIVER PROTOCOL;Other (please specify) Report MRI Abdomen w/ + w/o Contrast CLINICAL STATEMENT: Hepatomegaly. COMPARISON: Right upper quadrant ultrasound August 20, 2017. TECHNIQUE: Multisequence, multiplanar MR images of the abdomen use the liver mass protocol including dynamic gadolinium-enhanced sequences using 18 mL of MultiHance intravenous contrast. FINDINGS: The liver is mildly enlarged measuring about 18 cm in length. There is diffuse signal dropout of the liver on the pgh-hx-hbjyk sequences, consistent with diffuse hepatic steatosis. There are no suspicious liver lesions. No intrahepatic biliary duct dilatation. Common bile duct measures up to 4 mm in diameter. Gallbladder is normal in size. There is some layering high-signal intensity in the gallbladder on the T1-weighted images that may be related to some sludge in the gallbladder. There are no suspicious findings for cholelithiasis or signs of acute cholecystitis. The spleen, pancreas, and adrenal glands are within normal limits. Both kidneys show symmetric sizes with no hydronephrosis. There is an exophytic cyst arising from the lateral interpolar cortex of the right kidney, measuring about 3.3 x 3.2 cm. A smaller cyst present in the lateral interpolar cortex measures 1.0 cm. There is a tiny hyperintense T2 lesion with a corresponding hypodense 4 mm lesion in the posterior interpolar cortex of the left kidney, likely a tiny cyst but difficult to characterize due to its small size. There are no pathologically enlarged tj hepatis, mesenteric, or retroperitoneal lymph nodes in the ufxqd-qi-bhke. IMPRESSION: 1. Mild hepatomegaly with diffuse steatosis. 2. No suspicious liver lesions or biliary duct dilatation. 3. Suspect mild gallbladder sludge. No evidence of cholelithiasis or cholecystitis. Exam Date/Time: 09/03/2017 09:41 EST Report 4. Right renal cysts. Suspect tiny 4 mm left renal cyst. FINAL REPORT Dictated: 09/03/2017 10:37 am Juan Segal DO Signed (Electronic Signature): 09/03/2017 10:37 am Signed by: Juan Segal DO Technologist: AUSTIN BUN Collected: 09/01/2017 Status: F Source: [facility] 7:50 AM [facility] REPOSITORY TYPE CODE TESTS RESULT OUT OF RANGE REFERENCE UNITS LAB [id number](LO 7-18 mg/dL INC) Normal BUN 13 Performed By: #### [id number] #### REGGIE [facility] [address] [id number] EGFR Collected: 09/01/2017 Status: F Source: [facility] 7:50 AM [facility] REPOSITORY Order Comment: Order added by Discern Expert. TYPE CODE TESTS RESULT OUT OF RANGE REFERENCE UNITS LAB [id number](LO mL/min/1.73 INC) m2 Normal eGFR >60 LAB [id number](LO mL/min/1.73 INC) m2 Normal eGFR AA >60 Performed By: #### [id number] #### RE[facility]IE [facility] [address] [place] [address] CREATININE Collected: 09/01/2017 Status: F Source: [facility] 7:50 AM [facility] REPOSITORY TYPE CODE TESTS RESULT OUT OF RANGE REFERENCE UNITS LAB [id number](LO 0.6-1.3 mg/dL INC) Normal Creatinine 0.7 Performed By: #### [id number] #### REGGIE [facility] [address] [place] [address] ALLERGIES ALLERGIES DATE TYPE / CODE NAME / CODE REACTION SEVERITY SOURCE Drug/489970 No Known Lutheran 003([facility] Medication [facility] [place]) Allergies System Repository Drug NO KNOWN [facility] Class/72643 ALLERGIES Three Repository 1003(SNOMED CT) ENCOUNTERS ENCOUNTERS ADMIT/DISCHARGE ACCOUNT NUMBER ADMITTING ENCOUNTER LOCATION SOURCE CLASS 08/14/2018 [id number] [facility] ding:LABSPEC Repository 08/07/2018/08/07/19 [id number] [place], [facility] ding:[facility] System Repository 08/07/2018 [id number] Ambulatory [address] [place] [address] Repository 08/05/2018 [id number] [facility] ding:MTLAB Repository 07/09/2018/07/09/20 [id number] [place], Ambulatory [address] ding:[place] Repository nt Medic 07/09/2018/07/09/20 [id number] Ambulatory Building:[place] [address] [facility] Repository 07/06/2018/07/06/20 [id number] [place], Ambulatory [address] ding:[place] Repository nt MedicRoom: Room 1 07/03/2018/07/03/[id number] [place], [address] ding:[facility] System Repository 07/03/[id number] Repository 06/03/2018/06/03/20 [id number] [place], [address] ding:[facility] Repository 06/03/2018/06/03/20 [id number] [place], Ambulatory [address] ding:[place] Repository nt MedicRoom: Room 2 06/03/2018 [id number] Ambulatory [address] [place] [address] Repository 05/22/2018/05/22/20 [id number] [place], [address] ding:[facility] System Repository 05/22/2018 [id number] Ambulatory [facility] [place] [address] Repository 02/23/2018/02/24/20 [id number] Ambulatory Building:[place] [address] [facility] Three Repository 12/01/2017/12/02/19 [id number] [place], Ambulatory [address] ding:[place] Repository nt MedicRoom: Room 2 11/25/2017/11/26/19 [id number] [place], [address] ding:[facility] System Repository 10/23/[id number] Srinivasan Ambulatory [facility] Repository 10/23/2017/10/24/19 [id number] Ambulatory Building:[address] Repository 10/22/2017/10/23/19 [id number] Ambulatory [place] [address] DOBuilding:[facility] Repository 10/03/2017/10/04/[id number] Srinivasan Ambulatory [place] [address] Cody lding:S1A [facility]: S1A [place] S1ABed: S1A [facility] [id number] Repository 10/02/2017/10/03/19 [id number] Ambulatory [place] [address] uilding:[facility] urgCareRoom: Health System Room 1 Repository 09/30/[id number] Srinivasan [facility] Repository 09/10/2017/09/10/[id number] ding:[place] Repository nt MedicRoom: Room 1 09/09/2017 [id number] [facility] Repository 09/09/[id number] Srinivasan Ambulatory [facility] Repository 09/03/2017/09/03/[id number] [place] ding:[facility] Repository 09/01/2017/09/01/19 [id number] [facility] ding:[facility] Health System Repository PAYERS PAYERS ENCOUNTER GUARANTOR PAYER SUBSCRIBER SOURCE 08/14/2018 ESTEFANIA LOGAN3591 Primary ESTEFANIA Laurel LOGANDOB: [place] [facility] Insurance:ANTHEMPolic [id number] [place] Number: Hospital [address]Ncc: 419 [id number] Repository [phone] (HP) Date:9288-28-31[id number] [place] [address]OW: 08/14/2018 Secondary NOT GIVENUNK [place] Insurance:SELF PAY [facility] Number: Effective Repository Date:2018-08-14 08/07/2018 ESTEFANIA LOGANDOB: Primary ESTEFANIALyn LOGANDOB: [place] [facility] [id number] [facility] y Number: 1 [facility] Repository [place], [place] [id number] [place] [id number]: Date:Plan Name:[facility] [id number]: () (HP) 08/05/2018 ESTEFANIA LOGAN3591 Primary ESTEFANIA LOGANDOB: [place] [facility] Insurance:ANTHEMPolic [id number] [place] y Number: Hospital [address]Uni: 419 [id number] Repository [phone] () Date:8604-56-21KN [id number] [place] [address]XF: 08/05/2018 Secondary NOT GIVENUNK [place] Insurance:SELF PAY [facility] Hospital Number: Effective Repository Date:2018-08-05 07/09/2018 ESTEFANIALyn LOGANDOB: Primary ESTEFANIA Laurel LOGANDOB: [facility] [id number] Three Repository [facility] y Number: 1 [place], [place] [id number] [facility] [place] [address]Pws: ([phone]) Date:6510-58-06HK [address] [phone] () [id number] [place] [address]KS: 07/03/2018 ESTEFANIA KIRKLANDB: Primary ESTEFANIA DOB: [place] Insurance:AnthemPolic [id number] [facility] y Number: 1 [facility] Repository [place] [id number] [facility] [place] [id number]: Date:Plan Name:Health [id number]: (HP) (HP) 06/03/2018 ESTEFANIA KIRKLANDB: Primary ESTEFANIALyn KIRKLANDB: Lutheran Insurance:[facility] [id number] [place] [address] ANTHEMPolicy Number: 1 [facility] System [place] Effective [place] Repository [id number]: Date:2017-12-01 [id number]: [id number] (HP) Name:CD:[id number] O ()Tel: 419) [address]XKJWIRC, [place] [phone] () [address]TH: 06/03/2018 ESTEFANIALyn LOGANDOB: Primary ESTEFANIALyn LOGANB: [place] Insurance:AnthemPolic [id number] [facility] y Number: 1 [facility] Repository [place], [place] [id number] [place] [id number]: Date:Plan Name:Health [id number]: (HP) (HP) 05/22/2018 ESTEFANIA LOGANDOB: Primary ESTEFANIALyn LOGANB: [place] Insurance:[facility] [id number] [facility] y Number: 1 [address] Repository [place], [place] [id number] [place], [place] [id number]: Date:Plan Name:Health [id number]: (HP) (HP) 02/23/2018 ESTEFANIALyn LOGANDOB: Primary ESTEFANIA Laurel KINGDOB: [facility] [id number] Three Repository [facility] y Number: 1 [place], [place] [id number] [place], [place] [address]Nap: (419) Date:8202-84-60PA [address] [phone] (HP) [place], [place] [address]GC: 12/01/2017 ESTEFANIALyn LOGANDOB: Primary ESTEFANIA Laurel LOGANDOB: [place] Insurance:[facility] [id number] [facility] ANTHEMPolicy Number: 1 [facility] System [place] Effective [place] Repository [id number]: Date:2017-05-29 - [id number]: [id number] (HP) Name:CD:[id number] O ()Tel: 419) [address]ABDJWJL, [place] [phone] (UN) [address]JT: 11/25/2017 ESTEFANIA KIRKLANDB: Primary ESTEFANIA KIRKLANDB: [place]an [facility] [id number] [facility] y Number: Effective 1 [facility] System [place], [place] Date:2017-11-25 - [place] Repository [id number]: [id number]: Name:Brayan GodwinPO BOX (HP) 264[address]OOQUTTJLISETTE ZARATE ()Tel: [phone]: (wp) [phone] 10/23/2017 ESTEFANIA Laurel KINGDOB: Primary ESTEFANIA Laurel KINGDOB: [facility] Insurance:ANTHEMPolic [id number] Three Repository [facility] Number: 1 [place], [place] [id number] [place], [place] [address]Ouz: (419) Date:4391-53-85JK [address] [phone] (HP) [address] [place] [address]QJ: 10/22/2017 ESTEFANIA Laurel LOGANDOB: Primary ESTEFANIA Laurel LOGANDOB: Lutheran Insurance:1500 [id number] [facility] ANTHEMPolicy Number: 1 [facility] System [place] Repository [id number]: Date:2017-10-02 [id number]: [id number] (HP) Name:CD:[id number] O (HP)Tel: 419) [address]PI[address]MWC[address] [place] [address] [phone] () [address]UR: 10/03/2017 Primary ESTEFANIA KIRKLANDB: [facility] Insurance:[employer] [id number] [place] and [address] [place] [address] Number: 1 [facility] [id number] [place] Repository Date:Plan Name:[facility] [id number] 10/02/2017 ESTEFANIALyn LOGANDOB: Primary ESTEFANIA Laurel LOGANDOB: [place] Insurance:1500 [id number] [facility] ANTHEMPolicy Number: 1 [facility] System [facility] [place] Repository [id number]: Date:2017-09-10 [id number]: [id number] (HP) Name:CD:[id number] O (HP)Tel: (255) [place] [address]89[place]WBGC[place], [place] [phone] () [address]WB: 09/30/2017 Primary ESTEFANIA Laurel LOGANDOB: [facility] Insurance:[employer] Cross [id number] [place] and 332Policy Number: 1 [facility] [id number] [facility] [place] Repository Date:Plan Name:[place] [id number] 09/10/2017 ESTEFANIALyn LOGANDOB: Primary ESTEFANIA Laurel LOGANDOB: [place] Insurance:1500 [id number] [facility] ANTHEMPolicy Number: 1 [facility] [place] Effective [facility] [place] Repository [id number]: Date:2017-09-10 - [id number]: [id number] (HP) Name:CD:[id number] O ()Tel: (044) [address]ROVXMPQ, [place] [phone] () [address]TB: 09/09/2017 Primary ESTEFANIA Laurel LOGANDOB: [facility] Insurance:[employer] Cross [id number] [place] and 332Policy Number: 1 [id number] [place] Repository Date:Plan Name:[place] [id number] 09/09/2017 Primary ESTEFANIA Laurel LOGANDOB: [facility] Insurance:[employer] Cross [id number] [place] and 332Policy Number: 1 [facility] [id number] [facility] [place] Repository Date:Plan Name:[place] [id number] 09/03/2017 ESTEFANIA Laurel LOGANDOB: Primary ESTEFANIA Laurel LOGANDOB: [place] Insurance:ANTHEMPolic [id number] [facility] y Number: Effective 1 [facility] [place] Date:2017-08-27 - [place] Repository [phone]: [id number] [id number]: Name:Brayan CrossPO BOX () LISETTE PATRICIO ()Tel: [phone]: (wp) [phone] 09/01/2017 ESTEFANIA KIRKLANDB: Primary ESTEFANIA Barragan [facility] Lutheran [id number] [facility] [id number] [facility] y Number: Effective 1 [facility] System [place], [place] Date:2017-09-01 [place], [place] Repository [phone]: [id number]: Name:Brayan GodwinPO BOX () [address]ET[address] PATRICIO ()Tel: [phone]: ([phone]
--- OUTSIDE RECORDS SUMMARY | 2018-10-19 07:51 | XMS RPT_ITS | Summary of Care ---
:1960 Author Organization [facility] Address [address] [place] [address] Phone Care Team Providers Name Role Phone Unavailable Primary Care Provider Unavailable Encounter Details Date Type Department Care Team Description 09/09/2017 Hospital Encounter [facility] Cody Mattson Jr., [place], [place] [address] [address] [place], [place] [id number] Social History Tobacco Use Types Packs/Day Years Used Date Never Assessed Sex Assigned at Date Recorded Not on file as of this encounter Plan of Treatment Upcoming Encounters Date Type Specialty Care Team Description 10/23/2017 Hospital Encounter Cody Mattson Jr., DO [address] [place], [place] [id number] as of this encounter Insurance Payer Benefit Plan / Group Subscriber ID Type Phone Address AMANDA BERNARD/PREF/HMO/PPO [id number] [place]/PREF/H[place]/PPO [id number] ANTHEM ANTHEM BLUE/PREF/HMO/PPO [id number] as of this encounter
== END ==
PROVIDERS: Family Provider Nurse Practitioner Family; PCP Nurse Practitioner Family; Referring Provider Internal Medicine Gastroenterology; Visit Provider Internal Medicine Gastroenterology
DX: D50.9 Iron deficiency anemia, unspecified (principal)
CPT/HCPCS: 88305